=== PATIENT | female | born 1975 | race Hispanic/Latino ===

== ENCOUNTER 2016-05-25 05:55 | Day surgery (SDC) | payer OTHER ==
[2016-05-25] VITALS (11 sets, daily range): BP systolic 133–154; BP diastolic 78–98; PULSE 70–93; RESP 12–20; O2SAT 94–98
[~2016-05-25] VITALS: Ht 160 cm; Wt 99.7 kg
[2016-05-25] MEDS: Lactated Ringer's 1,000 ML IV SCH ×2 (05:51→07:37)
[~2016-05-25 05:55] MED LIST: ACET-171 PO; ALBU8.5H2 INHALATION; FLUC150T3 PO; IBUP200C PO; OXYB10TA PO; SULF1TAB7 PO
[2016-05-25] MEDS ORDERED: fentaNYL-PF 50 mCg/mL 2 mL Inj ONE (05:56)
[2016-05-25] MEDS ORDERED: Propofol 10,000 mCg/mL 20 mL Inj ONE (05:56)
[2016-05-25] MEDS ORDERED: Dexamethasone 4 mg/mL Inj ONE (05:56)
[2016-05-25] MEDS ORDERED: EPHEDrine/NS 5 mg/mL 5 mL Syringe ONE (05:56)
[2016-05-25] MEDS ORDERED: Ondansetron 2 mg/mL 2 mL Inj ONE (05:56)
[2016-05-25] MEDS ORDERED: Phenylephrine/NS 100 mCg/mL 10 mL Syringe IVPUSH ONE (05:56)
[2016-05-25] MEDS ORDERED: CeFAZolin Inj 2 GM in IV Premix 1 EACH IV SCH (06:00)
--- NOTE | 2016-05-25 07:07 | PCM.HPANE ---
Patient Data Surgeon Admitting Provider: Attending Provider:Gio Yeboah MD Primary Care Physician:Billy Sunshine MD Other Provider:Keren Hollandingham Anesthesia Reason for Visit Cystocele, Stress Incontinence Ht/WT & BMI Height (Feet): 5 Height (Inches): 3.00 Weight (Kilograms): 99.7 Body Mass Index 38.00 Allergies Coded Allergies: droperidol (Verified Allergy, Severe, MAKES MY SKIN CRAWL/ANAPHYLAXIS, ) Past Anesthesia History Anesthesia History: Denies:: Abnormal Airway, Anesthesia Reactions, Difficult Intubation, Malignant Hyperthermia Diabetes History Hx Diabetes?: No MRSA MRSA: No Medications Home Meds Incl Beta Jennyfer: No Reported Medications Ibuprofen 200 Mg [id number] Mg PO QID PRN For Pain Ref 0 05/24/16 Acetaminophen 500 Mg [id number] Mg PO Q6H PRN For Pain 05/24/16 Oxybutynin Chloride ER 10 Mg Tab.er.2410 Mg PO DAILY Ref 0 05/24/16 Sulfamethoxazole/Trimeth 800-160 mg (Bactrim DS)1 Each Tablet1 Tablet PO Q HS Ref 0 X2 PREOP 05/24/16 Fluconazole 150 Mg [id number] Mg PO Q WEEK #1 TABLET Ref 0 05/24/16 Albuterol HFA (Proair HFA)8.5 Gm Hfa.aer.ad2 Puffs INHALATION Q4H PRN PRN #1 INHALER 05/24/16 Discontinued Reported Medications Albuterol-Expunged Drug, Do Not Renew! 200 Puff/8.5 Gm Hfa.aer.ad1-2 Puff IH Q 4 -6HRS PRN 05/06/13 Discontinued Scripts oxyCODone/APAP-Expunged, Do Not Renew! (oxyCODone/Apap 5/325mg-Expunged, Do Not Renew)1 Tab Tablet1-2 Tab PO Q4H PRN For Moderate Pain #60 TABLET Prov:Cherie Alberto MD 05/08/13 IBUPROFEN-Expunged Drug, Do Not Renew! 800 Mg Biqkkv663 Mg PO Q6H PRN For Pain # 60 TABLET Prov:Cherie Alberto MD 05/08/13 Docusate Sod-Expunged Drug, Do Not Renew! 100 Mg [id number] Mg PO BID #60 Prov:Cherie Alberto MD 05/08/13 History History of ENT Problems?: Yes HEENT History: Positive for:: Sinus Problem (HX SINUSITIS) Denies:: Abnormal Airway Difficult Intubation Hx of Heart Problems?: No Cardiovascular History: Denies:: Congestive Heart Failure Heart Murmur Hypertension Other Cardiac History: HX ANEMIA Hx of Respiratory Problem?: Yes Respiratory History: Positive for:: Asthma (SEASONAL, rare inhaler use) Use of Inhalers / NEBS Denies:: Tuberculosis Use of C-PAP Machine Hx Neurologic Problems?: No Hx of GI Problems?: Yes Other GI Pertinent History: INTENTIONAL WEIGHT LOSS ABD PANNUS S/P ANT. ABD LIPOSUCTION W/ THE RESULT OF WORSENING PANNUS C/OF CHRONIC CONSTIPATION Hx of Problems?: Yes Other Pertinent History: S/P MONARCH BLADDER SLING Female Hx: Positive for:: Problems with Breasts? (S/P BREAST BX C/OF MACROMASTIA,BREAST HYPERTROPHY) Denies:: Currently Skin History: Positive for:: History Skin Disorders? (C/OF PUBIC AREA RASHES R /T PANNUS) Denies:: Pressure Ulcers Hx Musculoskeletal Problems?: No Musculoskeletal History: Denies:: Back Injury (C/OF THORACIC BACK PAIN R/T MACROMASTIA) Hx of Psycho/Social Problems?: No Hx Surgeries?: Yes (BTL,BREAST BX,ABD LIPOISUCTION,MONARCH SLING) Hx Any Other Health Problems?: Yes Other History: Positive for:: Hospitalization ([facility]) Denies:: Cancer Endocrine Disease Thyroid Disease History Blood Transfusions: Positive for:: Accept Blood Products? Denies:: Blood Transfusions Hx Diabetes: No Hx Alcohol Use: Yes (occ)Hx Substance Use: No Smoking Status: Current Some Day Smoker Have You Smoked inLast 12 mo: No Stop/Bang S-Snoring: Do You Snore Loudly: No T-Tired: feel tired, fatigued: No O-Obsered: Observed not breath: No P-Blood Pressure: treated: No B- Body Mass Index > 35 kg/m2: Yes A- Age over 50: No N- Neck Large Circumference: Yes G- Gender Male: No MALINA Total Score: 2 MALINA Risk Assessment: Low Risk, <3 Yes Risk Assessment Category Category 1A: Patient has history of documented sleep apnea, and HAS NOT received any narcotic, sedative or anesthesia administration during this stay. Category 1B: Patient has history of documented sleep apnea, and HAS received any narcotic , sedative or anesthesia administration during this stay Category 2: Patient has SUSPECTED Obstructive Sleep Apnea, and HAS received any narcotic , sedative or anesthesia administration during this stay. Category 3: Patient has SUSPECTED Obstructive Sleep Apnea and HAS NOT received narcotic, sedative or anesthesia administration during this stay. Category 4: Outpatient in Procedural Areas with known sleep apnea or who screen positive for High Risk via the STOP/BANG questionnaire. Exam Exam Vital Signs Vital Signs Date Time Temp Pulse Resp B/P Pulse Ox O2 Delivery O2 Flow Rate FiO2 05/25/16 06:36 36.4 70 18 135/90 97 Room Air General Appearance: Alert, Oriented X3, Cooperative, No Acute Distress HEENT/AIRWAY: MP 1 Lungs: Normal Air Movement Heart: Exam Unremarkable Meds/Labs/Diagnostics Admission Meds Current Medications Lactated Ringer's (Lr) 1,000 ml @ 120 mls/hr Q8H20M IV Last administered on t 05:51; Start 05/25/16 at 05:00; Stop 05/25/16 at 13:19 Plan Impression Patient chart reviewed, patient interviewed and anesthestic plan with risks, benefits, and alternatives discussed, and informed consent obtained. NPO Status: at 2130 ASA Physical Status: ASA2 Mod Systemic Disease Anesthetic Plan: GA Bene/Risks/Altern/Consents: Yes HP Complete Prior to Induction: Yes Apolinar Nova MD May 25, 2016 07:07
[2016-05-25] MEDS ORDERED: Lidocaine 1%-Epi 1:100,000 20 mL Inj INJ ONE (07:18)
[2016-05-25] MEDS ORDERED: Lactated Ringer's 1,000 ML IV SCH (07:53)
[2016-05-25] MEDS ORDERED: Lactated Ringer's 500 ML IV PRN (07:53)
[2016-05-25] MEDS ORDERED: EPHEDrine Sulfate 50 mg/mL Inj IVPUSH PRN (07:55)
[2016-05-25] MEDS ORDERED: Phenylephrine 10,000 mCg/mL Inj IVPUSH PRN (07:55)
[2016-05-25] MEDS ORDERED: HYDROmorphone 1 mg/mL Inj IVPUSH PRN (07:55)
[2016-05-25] MEDS ORDERED: Albuterol-Ipratropium 3 mL Inhalation Solution NEB PRN (07:55)
[2016-05-25] MEDS ORDERED: Ondansetron 2 mg/mL 2 mL Inj IVPUSH PRN ×3 (07:55→09:40)
[2016-05-25] MEDS ORDERED: MetoCLOpramide 5 mg/mL 2 mL Inj IVPUSH PRN ×3 (07:55→09:40)
[2016-05-25] MEDS ORDERED: Dexamethasone 4 mg/mL Inj IVPUSH PRN (07:55)
[2016-05-25] MEDS ORDERED: Gentamicin 40 mg/mL 2 mL Inj IRRIGATION ONE (08:19)
[2016-05-25] MEDS ORDERED: Sodium Chloride LOK Flush 10 mL Syringe XX ONE (08:20)
[2016-05-25] MEDS ORDERED: Estrogens Conjugated 30 Gm Vaginal Cream VAGINAL ONE (09:21)
[2016-05-25] MEDS ORDERED: oxyCODONE-Acetamin 5-325 mg Tablet PO PRN (09:40)
[2016-05-25] MEDS ORDERED: diphenhydrAMINE 25 mg Capsule PO PRN (09:40)
[2016-05-25] MEDS: fentaNYL-PF 50 mCg/mL 2 mL Inj IVPUSH PRN ×2 (09:44→10:19)
--- NOTE | 2016-05-25 09:53 | PCM.DIGYN ---
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 Yeboah's MA in 1 wk if home with khalil; ensure she brings an unopened 12F catheter to her visit in 1 wk if she failed void trial) Call your provider for: Fever, Chills, Shortness of breath, Vomitting, Drainage at incision, Heavy vaginal bleeding, Wound redness, Increasing pain
--- NOTE | 2016-05-25 10:03 | PCM.ANEP1 ---
Post Anesthesia Phase 1 PACU Phase 1 Assessment Vital Signs Vital Signs Date Time Temp Pulse Resp B/P Pulse Ox O2 Delivery O2 Flow Rate FiO2 05/25/16 10:00 36.7 90 16 140/83 98 Nasal Cannula 1 05/25/16 09:55 80 14 137/88 96 Nasal Cannula 1 05/25/16 09:50 86 17 141/81 98 Nasal Cannula 3 05/25/16 09:45 87 12 149/96 98 Nasal Cannula 3 05/25/16 09:40 85 20 153/84 98 Nasal Cannula 4 05/25/16 09:35 36.1 93 16 154/98 95 Nasal Cannula 4 05/25/16 06:36 36.4 70 18 135/90 97 Room Air Anesthetic Administered: GA Level of Alertness: Awake, talking BAER's with Equal Strength: Yes Pain: No Nausea or Vomiting: No Oxygen Delivery: Room Air Lungs: Normal Air Movement Dermatome Level: Full Sensation Apolinar Nova MD May 25, 2016 10:03
--- NOTE | 2016-05-25 10:07 | PCM.ANEP2 ---
Post Anesthesia Evaluation ASA/CMS Post Anesthesia VS in Patient's Normal Range?: Yes Resp Stable; Airway Patent?: Yes CV Function & Hydration Stable: Yes Mental Status Recovered?: Yes Pain control Satisfactory?: Yes N/V Control Satisfactory?: Yes Apolinar Nova MD May 25, 2016 10:07
--- NOTE | 2016-05-25 10:10 | PCM.SURGOP ---
Surgical Operative Report Date of Service: May 25, 2016 Pre Operative Diagnosis Recurrent anterior vaginal prolapse Recurrent urodynamic stress incontinence Post Operative Diagnosis cystocele popq stage 2 deficient pubovesical fascia recurrent stress incontinence Procedure: 1. Anterior colporrhaphy with Xenform graft augmentation 2. Macroplastique urethral injection and cystoscopy Surgeon and Firm Administrator: Surgeon: Gio Yeboah MD Assistants: None Indication for Procedure Previous hx of 1. Posterior colporrhaphy. 2. Anterior colporrhaphy. 3. Perineorrhaphy. for Gr 2 cystocele and Gr [address] Alberto 05/07/13 On physical exam, she had anterior vaginal prolapse. Urodynamics showed stress incontinence. She is a candidate for an anterior repair with possible Xenform graft and Macroplastique injection. She wishes to have her vagina narrowed as she feels the caliber is too large. I told her that we would adjust the caliber so that I can insert 2.5-3 fingers in the vagina which she agrees with. The patient signed the consent form. She agreed with the risks, benefits, and alternatives to surgery. The risks included but not limited to recurrence or persistence of prolapse, recurrence of persistence of incontinence, development of voiding dysfunction, development of urinary urgency, urgency incontinence, frequency, and need for intermittent self-catheterization or prolonged indwelling catheterization, injury to other organs including bladder, bowel, nerves or blood vessels. Need for blood transfusion, need for temporary colostomy or urinary stenting. Development of vaginal scarring, dyspareunia, defecatory dysfunction, recurring pain, hematoma formation, urinary tract infection, cellulitis, necrotizing fascitis, and medical risks including myocardial infarction, stroke or VTE. She also understood the FDA warnings associated with the use of vaginal mesh (dysparunia, vaginal erosion, erosion into bowel/bladder/urethra, requiring further surgery to correct these complications). The patient understood the risks and benefits and consented to surgery. Findings: vaginal wall cyst, 0.5 cm contained within the vaginal fascia at apex Procedure Details SURGICAL TECHNIQUE: The patient was brought to the operating room and was placed under general anesthesia. She was prepped and draped in the normal fashion for vaginal surgery with the legs in Yellofin stirrups. She was given a dose of IV anceg ntraoperatively. 1. Anterior colporrhaphy: Lidocaine 0.5% with 1/120361 epinephrine was infiltrated along the anterior vaginal wall mucosa. A midline vertical incision was made through the anterior vaginal wall . The vaginal wall was dissected off the underlying pubocervical and pubovesical fascia. The dissection was extended to the ischial pubic rami laterally, and to the cervix apically. A 0.5 cm vaginal cyst at the deeper fascial layers was freed, excised and sent to pathology. Bilateral paravaginal defects were noted. It was noted that the pubocervical and pubovesical fascial tissues were deficient and thin. The cystocele was plicated in 2 layers, the first layer with 2-0 Vicryl suture in interrupted fashion, the second layer with 2-0 Tycron suture in an interrupted fashion. A moderate amount of excess anterior vaginal mucosa was excised. A trapezoidal piece of xenform graft was incorporated atop the incision. The lateral edges were sutured to the obturator membrane far laterally. The apical portion was sutured to the anterior cervical stroma. A portion of the graft was excised at the area of the bladder neck to prevent overcorrection at that area. The vagina was then reapproximated using 3-0 Vicryl suture in a running locked fashion. 2. Macroplastique Urethral Injection and Cystoscopy. A 30-degree cystoscope was inserted into the bladder. The bladder was filled to approximately 50% capacity with sterile water. The scope was retracted to visualize the bladder neck and location of the mid urethral position. The needle was then advanced through the working channel of the scope to visualize the needle tip. The needle was inserted into urethral wall, taking care to ensure that the needle bevel was facing the center of the urethral lumen. We used the tissue tunneling technique by orienting the needle with the bevel towards the urethral lumen at a 30- to 45-degree angle. The needle was advanced into the tissue to the first monie, which was 0.5 cm deep. The scope was reduced to 0 degrees. The needle was then advanced to a second monie, which was 1 cm deep. Then, 2.5 mL of the Macroplastique were then injected at the 6 o'clock position. Thirty seconds of waiting time elapsed before withdrawing the needle from the tissue to limit product extravasation. The same procedure was performed at the 2 and 10 o'clock positions. The volumes at the 2 and 10 o'clock positions were 1.25 mL of Macroplastique implant. An additional 2.5 ml needed to be injected into the 12 and 1 oclock position to obtain adequate coaptation. The end result of the procedure revealed coaptation of the urethral mucosa at the level of the bladder neck. A 12F catheter was then inserted into the bladder. The estimated blood loss was minimal (50 mL). There were no complications. All sponges and instruments were accounted for. The patient was taken to the recovery room in stable condition. Complications There were no periprocedural complications identified. Surgical Specimen Removed: Yes Specimen sent to Pathology: Yes Surgical Specimen description: vaginal wall cyst Anesthetic Plan: GA Grafts, Implants: Grafts-See Implant Record, Implants-See Implant Record Output, Estimated Blood Loss: 50 (ml) Blood Administration during spangler: No Drains: None Catheters: Urethral 2 Way Mcknight Post Operative Plan voiding trial today then discharge home copies to: Gio Yeboah MD, William Andre Z MD May 25, 2016 10:10
--- NOTE | 2016-05-26 14:11 | PATH ---
SURGICAL PATHOLOGY Attending Physician:Gio Yeboah, CASE STATUS: Signed Out PATIENT NAME: JUWAN KAMARA PID: [id number] : 1975 DATE COLLECTED:05/25/2016 15:14 SPECIMEN: Cervix, Cyst CLINICAL HISTORY: VAGINAL WALL CYST 1).VAGINAL WALL CYST FINAL DIAGNOSIS: Vaginal Wall Cyst: Epidermal cyst. No evidence of malignancy or dysplasia. ICD10: L72.0 GROSS DESCRIPTION: The specimen is received in one formalin filled container labeled with the patient's name, sublabeled "vaginal wall cyst" and consists of a pink-middleton portion of tissue which measures 0.9 x 0.8 x 0.7 CM. The specimen is inked blue. The specimen is trisected and entirely submitted in one cassette. 05/25/2016 [facility] ICD-9 CODES: CPT CODES: 1: 21070 Electronically Signed Out Zana Clifford MD [facility] Pathology [facility] [address], [place] [address] Technical component performed at [facility], [facility] [address], [place], [address]
== END 2016-05-25 23:59 | disposition home or self-care (01) ==
LOC: SAS 05:55
PROVIDERS: ATTEND Obstetrics & Gynecology
DX: N81.2 Incomplete uterovaginal prolapse (principal); N81.82 Incompetence or weakening of pubocervical tissue; N39.3 Stress incontinence (female) (male); L72.0 Epidermal cyst; N30.30 Trigonitis without hematuria; R10.2 Pelvic and perineal pain; B37.3 Candidiasis of vulva and vagina; R35.0 Frequency of micturition; E66.9 Obesity, unspecified; J45.909 Unspecified asthma, uncomplicated; F17.210 Nicotine dependence, cigarettes, uncomplicated; Z68.39 Body mass index [BMI] 39.0-39.9, adult
CPT/HCPCS: 51715; 57135; 57240; 57267; 86850; 88304; C1763; J0690; J1100; J1580; J1885; J2250; J2370; J2405; J3010; J7120; L8606